=== PATIENT | female | born 1990 | race Asian ===

== ENCOUNTER 2019-08-26 19:30 | Inpatient (IN) | payer MEDICAID, OTHER, SELFPAY ==
--- NOTE | 2019-08-26 16:24 | PDOC.LDHP ---
Labor and Delivery H&P HPI: 29 y/o at 39 weeks for elective induction of labor. Patient has a fetus with estimated weight of 6 to 6 1/2 pounds. The patient and I discussed that her pelvis may be somewhat borderline in size for this baby, and I specifically discussed the benefits, risks, and alternatives to vaginal delivery with the patient on multiple visits. Primary was specifically discussed as another option for delivery, but patient has chosen a trial of vaginal labor which seems reasonable. GBS positive, Penicillin ordered. Current gestational age (weeks): 39 Due date: 09/03/19 Grav: 1 Para: 2 Abnormal US findings: No (39) Current medications: pre- vitamins Previous surgical history: none Social history: none - Physical Exam Vital signs reviewed and normal: yes General: NAD, resting Heart: RRR Lungs: CTAB Abdomen: gravid Extremeties: no edema FHT: category 1 - Assessment L&D Assessment: elective induction at term - Plan Plan: admit to L&D, cervical ripening
[~2019-08-26 19:30] MED LIST: Acetaminophen 500 MG TAB PO PRN; Butorphanol Tartrate 1 MG/ML VIAL SLOW IVP PRN; Carboprost 250 MCG/ML AMP IM PRN; Diphenoxylate HCl/Atropine Tablet PO PRN; HYDROcodone/Acetaminophen 5/325 mg Tablet PO PRN; Ibuprofen 800 MG TAB PO PRN; Lidocaine 1% (PF) 30 ML VIAL SC PRN; Methylergonovine 0.2 MG/ML VIAL IM PRN; Misoprostol 200 MCG TAB PR PRN; NS / Oxytocin 40 units/1000ml 1,000 ML IV PRN; Ondansetron PF 4 MG/2 ML Vial IVP PRN; Promethazine HCl 25 MG/ML VIAL IM PRN; Zolpidem Tartrate 5 MG TAB PO PRN; hydrALAZINE 20 MG/ML VIAL SLOW IVP PRN
[2019-08-26 23:17] VITALS: BMI 22.1
[2019-08-26] MEDS ORDERED: NS w/ Oxytocin 10 units 500 ML IV SCH ×2 (23:30→23:59)
[2019-08-26 23:43] LABS: Hemoglobin 13.7 g/dL (12.0-16.0); Mean Corpuscular HGB CONC 35.1 g/dL (32.0-36.0); Mean Corpuscular Hemoglobin 32.5 pg (27.0-31.0); Mean Corpuscular Volume 92.6 fL (78.0-98.0); Mean Platelet Volume 10.2 fL (7.4-10.4); Platelet Count 165 thou/uL (130-400); RBC Distribution Width 12.7 % (11.5-14.5); Red Blood Cell (RBC) Count 4.21 mill/uL (4.20-5.40); White Blood Cell (WBC) Count 9.9 thou/uL (4.8-10.8)
[2019-08-26] MEDS: Lactated Ringer's 1,000 ML IV SCH (23:46)
[2019-08-26] MEDS: Misoprostol 100 MCG TAB VAG SCH (23:51)
[2019-08-26] MEDS ORDERED: Penicillin G Potassium 5 MILL.UNITS in Sodium Chloride 0.9% 100 ML IVPB SCH (23:59)
[2019-08-27 00:20] LABS: HBSAg Index 0.12 S/CO (0-0.99); Hep B Surf Ag Non-Reactive S/CO (NonReactive)
[2019-08-27 04:01] LABS: Syphilis Antibody Nonreactive (Nonreactive); Syphilis Antibody Index 0.11 S/CO (<1.00 Non-Reactive)
[2019-08-27] MEDS: Penicillin G 2.5 MILL.units 2.5 MILL.UNITS in Premix Bag 1 BAG IVPB SCH ×3 (04:21→15:39)
[2019-08-27] MEDS ORDERED: Fentanyl 4 mcg/Bup 0.1% Cadd 100 ML ONE ×2 (04:26→10:40)
[2019-08-27] MEDS ORDERED: Lactated Ringer's 500 ML IV PRN (05:23)
[2019-08-27] MEDS ORDERED: Ondansetron PF 4 MG/2 ML Vial IVP PRN ×2 (05:23→13:53)
[2019-08-27] MEDS ORDERED: Acetaminophen 325 MG TAB PO PRN (05:23)
[2019-08-27] MEDS ORDERED: diphenhydrAMINE 50 MG/ML VIAL IVP PRN (05:23)
[2019-08-27] MEDS ORDERED: EPHEDRINE 25 MG/5 ML SYRINGE SLOW IVP PRN (05:23)
[2019-08-27] MEDS ORDERED: Promethazine HCl 25 MG/ML VIAL IM PRN ×2 (05:23→13:53)
[2019-08-27] MEDS ORDERED: Naloxone HCl 0.4 mg/ml Vial IVP PRN ×2 (05:23)
[2019-08-27] MEDS ORDERED: Communication Order-Pharmacy FS SCH (05:30)
[2019-08-27] MEDS ORDERED: Fentanyl 4 mcg/Bupivacaine 0.1% Cassette 100 ML EPIDURAL SCH (05:30)
[2019-08-27] MEDS: Lactated Ringer's 1,000 ML IV SCH (06:11)
[2019-08-27] MEDS ORDERED: NS / Oxytocin 40 units/1000ml 1,000 ML ONE (09:08)
[2019-08-27] MEDS ORDERED: Lidocaine 1% (PF) 30 ML VIAL ONE (09:08)
[2019-08-27] MEDS ORDERED: Misoprostol 200 MCG TAB ONE ×2 (11:23→11:25)
[2019-08-27] MEDS ORDERED: hydrALAZINE 20 MG/ML VIAL SLOW IVP PRN (13:53)
[2019-08-27] MEDS ORDERED: Measles/Mumps/Rubella 10 MCG/0.5 ML VIAL SC ONE (13:53)
[2019-08-27] MEDS ORDERED: Benzocaine-Menthol 82.5 ML CAN TOP PRN (13:53)
[2019-08-27] MEDS ORDERED: Varicella virus, LIVE 0.5 ML VIAL SC ONE (13:53)
[2019-08-27] MEDS ORDERED: Zolpidem Tartrate 5 MG TAB PO PRN (13:53)
[2019-08-27] MEDS ORDERED: HYDROcodone/Acetaminophen 5/325 mg Tablet PO PRN ×2 (13:53)
[2019-08-27] MEDS ORDERED: Milk Of Magnesia 30 ML UDCUP PO PRN (13:53)
[2019-08-27] MEDS ORDERED: Preparation H Ointment 28 GM TUBE PR PRN (13:53)
[2019-08-27] MEDS ORDERED: Bisacodyl 10 MG SUPP PR PRN (13:53)
[2019-08-27] MEDS ORDERED: Adacel (T-DAP) 0.5 ML SYRINGE IM ONE (13:53)
[2019-08-27] MEDS ORDERED: diphenhydrAMINE 25 MG CAP PO PRN (13:53)
[2019-08-27] MEDS ORDERED: NS / Oxytocin 40 units/1000ml 1,000 ML IV SCH (13:53)
[2019-08-27] MEDS ORDERED: Lanolin Ointment 7 GM TUBE TOP PRN (13:53)
[2019-08-27] MEDS: Misoprostol 100 MCG TAB VAG SCH ×3 (15:35→15:39)
[2019-08-27] MEDS: Ibuprofen 800 MG TAB PO SCH ×2 (15:46→23:24)
[2019-08-27] MEDS: Ferrous Sulfate 325 MG TAB PO SCH (16:18)
[2019-08-27] MEDS: Docusate Calcium (SURFAK) 240 MG CAP PO SCH (21:17)
[2019-08-28] MEDS ORDERED: Simethicone Chewable 80 MG TAB PO PRN (02:03)
[2019-08-28] MEDS: Ibuprofen 800 MG TAB PO SCH ×3 (06:01→22:00)
[2019-08-28 07:09] LABS: Hemoglobin 11.3 g/dL (12.0-16.0); Mean Corpuscular Volume 94.1 fL (78.0-98.0); Mean Platelet Volume 9.9 fL (7.4-10.4); Platelet Count 121 thou/uL (130-400); RBC Distribution Width 12.7 % (11.5-14.5); Red Blood Cell (RBC) Count 3.52 mill/uL (4.20-5.40); White Blood Cell (WBC) Count 11.8 thou/uL (4.8-10.8)
[2019-08-28] MEDS: Ferrous Sulfate 325 MG TAB PO SCH ×2 (07:54→16:30)
[2019-08-28] MEDS: Prenatal Vitamin 1 TAB PO SCH (10:12)
[2019-08-28] MEDS: Docusate Calcium (SURFAK) 240 MG CAP PO SCH ×2 (10:12→22:30)
--- NOTE | 2019-08-28 21:11 | PDOC.PP ---
Post Progress Note Post Day #: 1 PO intake tolerated: yes Flatus: yes Ambulation: yes Vital Signs (12 hours) Temp Pulse Resp BP 08/28/19 11:22 98.0 F 63 20 118/86 Weight Weight 129 lb Result Diagrams: 08/28/19 06:49 Additional Labs: Post Labs Blood Type B POSITIVE 08/27/19 00:21 Hep Bs Antigen Non-Reactive S/CO (NonReactive) 08/26/19 23:30 - Assessment/Plan Telephone rounds with patient. Patient is breast feeding, ambulating well, tolerating pain at her perineum well today. She feels ready to go home tomorrow. DC orders for tomorrow morning have been put in. F/U in clinic in 2 weeks.
[2019-08-29] MEDS: Ibuprofen 800 MG TAB PO SCH (05:01)
[2019-08-29] MEDS: Prenatal Vitamin 1 TAB PO SCH (10:31)
[2019-08-29] MEDS: Docusate Calcium (SURFAK) 240 MG CAP PO SCH (10:31)
[2019-08-29] MEDS: Ferrous Sulfate 325 MG TAB PO SCH (10:32)
[2019-08-29 10:40] VITALS: BP 114/78; TEMP 98
== END 2019-08-29 12:55 | disposition home or self-care (01) | DRG 807 ==
LOC: L&D 22:40 → 3SW 08-27 14:30
PROVIDERS: ADMIT Obstetrics & Gynecology; ATTEND Obstetrics & Gynecology
PROC: 10E0XZZ Delivery of Products of Conception, External Approach (ICD-10-PCS; principal; 2019-08-27)
PROC: 0KQM0ZZ Repair Perineum Muscle, Open Approach (ICD-10-PCS; 2019-08-27)
PROC: 3E0P7VZ Introduction of Hormone into Female Reproductive, Via Natural or Artificial Opening (ICD-10-PCS; 2019-08-27)
PROC: 3E0234Z Introduction of Serum, Toxoid and Vaccine into Muscle, Percutaneous Approach (ICD-10-PCS; 2019-08-29)
DX: O99.824 Streptococcus B carrier state complicating childbirth (principal); Z37.0 Single live birth; Z3A.39 39 weeks gestation of pregnancy; O70.1 Second degree perineal laceration during delivery; Z23 Encounter for immunization
CPT/HCPCS: 36415; 51702; 85027; 86780; 86850; 86900; 86901; 87340; 90715; J0360; J2001; J2540; J3490